=== PATIENT | female | born 1930 | race Caucasian/White ===

== ENCOUNTER 2017-12-15 22:48 | Emergency (ER) | payer OTHER ==
[~2017-12-15] VITALS: Ht 152.4 cm; Wt 86.9 kg
[~2017-12-15 22:48] MED LIST: ADULT LOW DOSE81 M1 PO; ALLOPURINOL100 MG PO; AUGMENTIN875 MG PO; CEFTIN500 MG PO; CHLORTHALIDONE25 MG PO; CORTEF5 M1 PO; COZAAR100 MG PO; CYANOCOBALAM1000 MCG PO; DUONEB 2.5-0.5 M3 ML AEROSOL; FERROUS SULFAT325 MG PO; FISH OIL500 MG PO; FLAGYL500 MG PO; HYDRALAZINE HCL10 MG PO; HYDREA500 MG PO; HYDROCORTISONE5 MG PO; LEVAQUIN500 MG PO; LEVOFLOXACIN750 MG PO; LO-DOSE ASPIRIN81 M2 PO; LOPRESSOR50 MG PO; MAG-OXIDE400 MG PO; MOTRIN600 MG PO; PHOSPHA250 MG PO; PLENDIL10 MG PO; PRAVACHOL40 MG PO; PROCHLORPERAZIN10 MG PO; PROCRIT; PROCRIT10000 UNI1 IV; REFRESH TEARS15 ML RIGHT EYE; TRAMADOL HCL50 MG PO; TYLENOL EXTRA500 MG PO; VENLAFAXINE H37.5 M3 PO; VITAMIN D1000 INTUN PO
[2017-12-16 01:19] LABS: CHLORIDE 108 mEq/L (99-109); POTASSIUM 4.7 mEq/L (3.7-5.4); SODIUM 142 mEq/L (136-147)
[2017-12-16 01:20] LABS: GLUCOSE 120 mg/dL (70-99)
[2017-12-16 01:24] LABS: CREATININE 0.9 mg/dL (0.6-1.3); GFR ESTIMATE (CALCULATED) > 59 mL/min/
[2017-12-16 01:25] LABS: UREA NITROGEN (BUN) 20 mg/dL (9-23)
[2017-12-16 01:29] LABS: TROP-I INTERPRETATION NEGATIVE; TROPONIN-I 0.04 ng/mL (0.0-0.30)
[2017-12-16 02:28] LABS: TROP-I INTERPRETATION NEGATIVE; TROPONIN-I 0.05 ng/mL (0.0-0.30)
[2017-12-16 03:38] VITALS: BP 201/92
== END 2017-12-16 03:40 | disposition home or self-care (01) ==
LOC: EME 22:48
PROVIDERS: Emergency Medicine
DX: I12.9 Hypertensive chronic kidney disease with stage 1 through stage 4 chronic kidney disease, or unspecified chronic kidney disease (principal); N18.9 Chronic kidney disease, unspecified; K21.9 Gastro-esophageal reflux disease without esophagitis; Z85.6 Personal history of leukemia; Z88.8 Allergy status to other drugs, medicaments and biological substances
CPT/HCPCS: 71046; 80048; 81003; 84484; 93005; 99281; 99284